=== PATIENT | female | born 1940 | race Caucasian/White ===

== ENCOUNTER 2017-07-10 23:57 | Emergency (ER) | payer MEDICARE, OTHER ==
[~2017-07-10] VITALS: Ht 162.6 cm; Wt 90.0 kg
[~2017-07-10 23:57] MED LIST: AMLO1TAB15; ASPI-664; CARB1TAB; CRES10; ESOM40CA; EZET10TA3; FURO-110; ISOS60TA52; NATE120T12; OMEG100016; RANI150T9; SENN-53; TRAM-40; TRIA0.25; [UNRECOGNIZED DRUG - CODE]
[2017-07-11] MEDS ORDERED: SOD CHLORIDE 0.9% 1,000 ML IV STA
[2017-07-11 00:05] VITALS: Ht 162.6 cm; Wt 90.0 kg
--- NOTE | 2017-07-11 01:41 | RADRPT ---
PROCEDURE: XR Chest. CLINICAL INDICATION: Syncope. TECHNIQUE: Single frontal view of the chest. COMPARISON: 12/29/2008. FINDINGS: Cardiomegaly. The lungs are clear. No signs of pleural fluid or pneumothorax are seen. The osseous s tructures and soft tissues are unremarkable. Dystrophic calcifications over the lateral right saturnino l head, new over interval. Findings may represent calcific tendinosis or sequela of trauma. IMPRESSION: No evidence for active cardiopulmonary disease. RPTAT: [facility] Physician Anjel Date Time Electronically viewed and signed by Smiley Amin Physician on 07/11/2017 01:41 RS/
--- NOTE | 2017-07-11 01:47 | RADRPT ---
PROCEDURE: CT brain without contrast. CLINICAL INDICATION: Syncope. TECHNIQUE: CT scan of the brain was performed on a multi-detector high-resolution CT scanner. Co ntiguous axial images were obtained from the skull base to the vertex without intravenous contrast. Coronal and sagittal reformatted images were also obtained. Images were reviewed on the PACS works tation. One or more of the following dose reduction techniques were used: - Automated exposure control. - Adjustment of the mA and/or kV according to patient size. - Use of iterative reconstruction technique. Exam CTD/vol = 45.01 mGy. Total exam DLP = 720.23 mGy-cm. COMPARISON: None. FINDINGS: The ventricles and cortical sulci are prominent consistent with mild age related volume loss. There are patchy areas of low attenuation within the periventricular white matter consistent with mild ch ronic ischemic changes secondary to small vessel disease. There is a poorly defined mass within the medial aspect of the left middle cranial fossa with speckled calcifications measuring approximately 2.2 cm AP by 1.6 cm transverse by 1.7 cm sagittal. The mass is likely extra-axial. There is minimal mass effect upon the adjacent left temporal lobe without significant edema. There is no midline álvaro ft. There is no intracranial hemorrhage or abnormal extra-axial collection. There are atherosclerot ic calcifications within bilateral distal internal carotid arteries. The calvarium is intact. There is no evidence of fracture. Visualized paranasal sinuses and mastoi d air cells are clear. IMPRESSION: Poorly defined, likely extra-axial mass within the medial aspect of the left middle cranial fossa me asuring 2.2 x 1.6 x 1.7 cm. There is minimal mass effect without significant midline shift. Further evaluation by MRI with contrast is recommended. Mild age related volume loss and chronic ischemic white matter disease. Cerebral atherosclerosis. A call report was made to Dr. Jara at 01:44 a.m. .Chidi Sanabria MD, MD Date Time Electronically viewed and signed by .Chidi Sanabria MD, MD on 07/11/2017 01:46 .T/
--- NOTE | 2017-07-11 01:53 | ERD ---
ER Documentation Chief Complaint Chief Complaint weakness this evening, d/c'd from [facility] yesterday for HTN HPI 77-year-old female who comes in with complaints of weakness his evening. He received discharge from [facility] yesterday for severely elevated blood pressure. 8 hours later patient was found down on the ground. She started on new blood pressure medication on the pain medication and sleeping medication. No IV was established in the field. IV was established here. Given normal saline fluid bolus. Blood pressure normalized. ROS All systems reviewed and are negative except as per history of present illness. Medications Home Meds Reported Medications Furosemide* (Lasix*) 20 Mg Tablet 02/01/10 Aspirin* (Aspirin* EC) 81 Mg Tablet. 02/01/10 Carbidopa/Levodopa (Sinemet 25-100 Tablet) 1 Tab Tablet 02/01/10 Rosuvastatin Calcium* (Crestor*) 10 Mg Tablet 02/01/10 Ezetimibe* (Zetia*) 10 Mg Tablet 02/01/10 Isosorbide Mononitrate* (Imdur*) 60 Mg Tab.sr.24h 02/01/10 Nateglinide* (Starlix*) 120 Mg Tablet 02/01/10 [place]-3 Fatty Acids ([place]-3) 1,000 Mg Capsule 02/01/10 Ranitidine Hcl* (Zantac*) 150 Mg Capsule 02/01/10 Valerian Root (Valerian Root) 500 Mg Capsule 02/01/10 Esomeprazole Mag Trihydrate (Nexium) 40 Mg Capsule. 02/01/10 Sennosides* (Senna Lax*) 8.6 Mg Tablet 02/01/10 Amlodipine-Valsartan (Exforge) 1 Tab Tablet 02/01/10 Tramadol Hcl* (Ultram*) 50 Mg Tablet 02/01/10 Triazolam* (Halcion*) 0.25 Mg Tablet 02/01/10 Allergies Allergies: Coded Allergies: No Known Allergy (Verified , 02/01/10) PMhx/Soc History of Surgery: Yes (3 STENTS A YEAR AND A HALF AGO) Anesthesia Reaction: No Hx Neurological Disorder: No Hx Respiratory Disorders: No Hx Cardiac Disorders: Yes (HTN, 3 STENTS) Hx Psychiatric Problems: No Hx Miscellaneous Medical Probl: No Hx Alcohol Use: No Hx Substance Use: No Hx Tobacco Use: No Smoking Status: Never smoker Physical Exam Vitals Vital Signs Date Time Temp Pulse Resp B/P Pulse Ox O2 Delivery O2 Flow Rate FiO2 07/11/17 00:05 98.2 57 16 83/66 99 Physical Exam Const: [] Head: Atraumatic Eyes: Normal Conjunctiva ENT: Normal External Ears, Nose and Mouth. Neck: Full range of motion..~ No meningismus. Resp: Clear to auscultation bilaterally Cardio: Regular rate and rhythm, no murmurs Abd: Soft, non tender, non distended. Normal bowel sounds Skin: No petechiae or rashes Back: No midline or flank tenderness Ext: No cyanosis, or edema Neur: Awake and alert Psych: Normal Mood and Affect Result Diagram: 07/11/17 0015 07/11/1714 Results 24 hrs Laboratory Tests Test 07/11/17 00:15 07/11/17 00:55 White Blood Count 8.210^3/ul Red Blood Count 3.6610^6/ul Hemoglobin 11.6g/dl Hematocrit 34.4% Mean Corpuscular Volume 94.0fl Mean Corpuscular Hemoglobin 31.7pg Mean Corpuscular Hemoglobin Concent 33.7g/dl Red Cell Distribution Width 11.8% Platelet Count 03575^3/UL Mean Platelet Volume 10.4fl Neutrophils % 72.1% Lymphocytes % 22.0% Monocytes % 5.5% Eosinophils % 0.1% Basophils % 0.1% Nucleated Red Blood Cells % 0.0/100WBC Neutrophils # 5.910^3/ul Lymphocytes # 1.810^3/ul Monocytes # 0.510^3/ul Eosinophils # 0.010^3/ul Basophils # 0.010^3/ul Nucleated Red Blood Cells # 0.010^3/ul Sodium Level 140mmol/L Potassium Level 4.1mmol/L Chloride Level 103mmol/L Carbon Dioxide Level 27mmol/L Anion Gap 14 Blood Urea Nitrogen 30mg/dl Creatinine 1.61mg/dl Glucose Level 162mg/dl Calcium Level 9.4mg/dl Total Bilirubin 0.4mg/dl Direct Bilirubin 0.00mg/dl Indirect Bilirubin 0.4mg/dl Aspartate Amino Transf (AST/SGOT) 19IU/L Alanine Aminotransferase (ALT/SGPT) 25IU/L Alkaline Phosphatase 41IU/L Troponin I < 0.012ng/ml B-Type Natriuretic Peptide 814PG/ML Total Protein 6.5g/dl Albumin 3.6g/dl Globulin 2.90g/dl Albumin/Globulin Ratio 1.24 Bedside Glucose 160mg/dL Current Medications Medications (Trade) Dose Ordered Sig/Zechariah Route PRN Reason Start Time Stop Time Status Last Admin Dose Admin Sodium Chloride (NS) 1,000 ml @ 1,000 mls/hr Q1H STAT IV 07/11/17 00:00 07/11/17 00:59 DC 07/11/17 00:19 Procedures/MDM EKG: Rate/Rhythm: [Normal Sinus Rhythm] QRS, ST, T-waves: [No changes consistent w/ acute ischemia] Impression: [No evidence of ischemia or arrhythmia] Chest X-ray 1V Interpreted by me: Soft Tissue: No acute abnormalities Bones: No acute abnormalities Mediastinum/Cardiac Silhouette/Lungs: [No acute abnormalities] Patient's syncopal symptoms are unstable at this time and require inpatient workup. No evidence of PE or dissection at this time but occult ischemia or fatal dysrhythmia cannot be ruled out. Patient admitted to hospitalist Critical Care: Time: 45 minutes Treatments/Evaluations: Close monitoring and treatment of unstable vital signs, cardiorespiratory, and neurologic status, while maintaining tight balance of fluid, respiratory, and cardiac interventions. Departure Diagnosis: Primary Impression: Hypotension Hypotension type: unspecified hypotension type Qualified Code: I95.9 - Hypotension, unspecified hypotension type Additional Impression: Syncope Syncope type: unspecified Qualified Code: R55 - Syncope, unspecified syncope type Condition: Serious JAMIR DONNELLYDonald Jul 11, 2017 01:53
[2017-07-11 02:51] VITALS: TEMP 98.2
[2017-07-11] MEDS ORDERED: METO-335 PO (03:02)
[2017-07-11] MEDS ORDERED: CLOP75TA4 PO (03:02)
[2017-07-11] MEDS ORDERED: TAMS0.4C2 PO (03:02)
[2017-07-11] MEDS ORDERED: ROSU20TA PO (03:08)
[2017-07-11] MEDS ORDERED: TRAM-40 PO (03:09)
[2017-07-11 03:54] VITALS: BP 95/50; PULSE 76; RESP 17
[2017-07-11] MEDS ORDERED: SOD CHLORIDE 0.9% 1,000 ML IV SCH (07:37)
[2017-07-11] MEDS ORDERED: ONDANSETRON 4 MG INJ IV PRN (08:00)
[2017-07-11] MEDS ORDERED: LORAZEPAM 2 MG INJ IV PRN (08:00)
[2017-07-11] MEDS ORDERED: traMADol 50 MG TAB PO PRN (08:00)
[2017-07-11] MEDS ORDERED: NACL 0.9% 3 ML SYG IV SCH (08:00)
[2017-07-11] MEDS ORDERED: ACETAMINOPHEN 325 MG TAB PO PRN (08:00)
[2017-07-11] MEDS ORDERED: ALBUTEROL/IPRATROPIUM (NEB) 3 ML AMP HHN PRN (08:00)
[2017-07-11] MEDS ORDERED: CLOPIDOGREL 75 MG TAB PO SCH (09:00)
--- NOTE | 2017-07-11 09:53 | DS ---
Date/Time of Note Date/Time of Note DATE: 07/11/17 TIME: 09:53 Discharge Summary Admission/Discharge Info Admit Date/Time Discharge Date/Time Patient Condition: Serious Hospital Course patient left AMA. I did not see the patient. Home Meds Reported Medications Tramadol Hcl* (Ultram*) 50 Mg Tablet, 50 MG PO Q6H Y for PAIN, TAB 07/11/17 Rosuvastatin Calcium* (Crestor*) 20 Mg Tablet, 20 MG PO QHS, #30 TAB 07/11/17 Clopidogrel Bisulfate* (Clopidogrel Bisulfate*) 75 Mg Tablet, 75 MG PO DAILY, # 30 TAB 07/11/17 Tamsulosin Hcl* (Tamsulosin Hcl*) 0.4 Mg Cap.er.24h, 0.4 MG PO AFTER BREAKFAST, CAP 07/11/17 Aspirin* (Aspirin* EC) 81 Mg Tablet. 02/01/10 Carbidopa/Levodopa (Sinemet 25-100 Tablet) 1 Tab Tablet 02/01/10 Amlodipine-Valsartan (Exforge) 1 Tab Tablet 02/01/10 Discontinued Reported Medications Metoprolol Succinate* (Toprol XL*) 25 Mg Tab.sr.24h, 25 MG PO DAILY, #30 TAB 07/11/17 Furosemide* (Lasix*) 20 Mg Tablet 02/01/10 Rosuvastatin Calcium* (Crestor*) 10 Mg Tablet 02/01/10 Ezetimibe* (Zetia*) 10 Mg Tablet 02/01/10 Isosorbide Mononitrate* (Imdur*) 60 Mg Tab.sr.24h 02/01/10 Nateglinide* (Starlix*) 120 Mg Tablet 02/01/10 [place]-3 Fatty Acids ([place]-3) 1,000 Mg Capsule 02/01/10 Ranitidine Hcl* (Zantac*) 150 Mg Capsule 02/01/10 Valerian Root (Valerian Root) 500 Mg Capsule 02/01/10 Esomeprazole Mag Trihydrate (Nexium) 40 Mg Capsule. 02/01/10 Sennosides* (Senna Lax*) 8.6 Mg Tablet 02/01/10 Tramadol Hcl* (Ultram*) 50 Mg Tablet 02/01/10 Triazolam* (Halcion*) 0.25 Mg Tablet 02/01/10 Primary Care Provider Deja Chicas Pending Labs Laboratory Tests Test 07/11/17 00:15 07/11/17 00:55 White Blood Count 8.210^3/ul (4.8-10.8) Red Blood Count 3.6610^6/ul (4.20-5.40) Hemoglobin 11.6g/dl (12.0-16.0) Hematocrit 34.4% (37.0-47.0) Mean Corpuscular Volume 94.0fl (82.0-101.0) Mean Corpuscular Hemoglobin 31.7pg (29.0-33.0) Mean Corpuscular Hemoglobin Concent 33.7g/dl (32.0-37.0) Red Cell Distribution Width 11.8% (11.5-14.5) Platelet Count 28698^3/UL (140-415) Mean Platelet Volume 10.4fl (7.4-10.4) Neutrophils % 72.1% (39.0-77.0) Lymphocytes % 22.0% (15.0-51.0) Monocytes % 5.5% (0.0-11.0) Eosinophils % 0.1% (0.0-7.0) Basophils % 0.1% (0.0-2.0) Nucleated Red Blood Cells % 0.0/100WBC (0.0-0.0) Neutrophils # 5.910^3/ul (1.6-7.5) Lymphocytes # 1.810^3/ul (0.8-2.9) Monocytes # 0.510^3/ul (0.3-0.9) Eosinophils # 0.010^3/ul (0.0-0.5) Basophils # 0.010^3/ul (0.0-0.1) Nucleated Red Blood Cells # 0.010^3/ul (0.0-0.0) Sodium Level 140mmol/L (135-144) Potassium Level 4.1mmol/L (3.5-5.1) Chloride Level 103mmol/L (97-110) Carbon Dioxide Level 27mmol/L (21-31) Anion Gap 14 (8-16) Blood Urea Nitrogen 30mg/dl (7-20) Creatinine 1.61mg/dl (0.44-1.00) Glucose Level 162mg/dl (70-220) Calcium Level 9.4mg/dl (8.4-10.2) Total Bilirubin 0.4mg/dl (0.2-1.3) Direct Bilirubin 0.00mg/dl (0.00-0.20) Indirect Bilirubin 0.4mg/dl (0-1.1) Aspartate Amino Transf (AST/SGOT) 19IU/L (15-46) Alanine Aminotransferase (ALT/SGPT) 25IU/L (13-69) Alkaline Phosphatase 41IU/L (42-121) Troponin I < 0.012ng/ml (0.00-0.12) B-Type Natriuretic Peptide 814PG/ML (0-450) Total Protein 6.5g/dl (6.1-8.1) Albumin 3.6g/dl (3.3-4.9) Globulin 2.90g/dl (1.3-3.2) Albumin/Globulin Ratio 1.24 Bedside Glucose 160mg/dL (70-220) JUDE AGUSTIN Jul 11, 2017 09:53
[2017-07-11] MEDS ORDERED: ATORVASTATIN 80 MG TAB PO SCH (21:00)
== END 2017-07-11 03:57 | disposition left against medical advice (07) ==
LOC: E/R 23:57
DX: I95.9 Hypotension, unspecified (principal); R55 Syncope and collapse; I10 Essential (primary) hypertension; Z98.61 Coronary angioplasty status; Z79.82 Long term (current) use of aspirin
CPT/HCPCS: 36415; 70450; 71010; 80053; 82962; 83880; 84484; 85025; 93005; 99291; J7030